=== PATIENT | female | born 1940 ===

== ENCOUNTER 2022-03-11 01:05 | Inpatient (IN) | payer MEDICARE, BC ==
[~2022-03-11] VITALS: Ht 175.3 cm; Wt 83.1 kg
[2022-03-11 03:11] LABS: Hematocrit 33.8 % (33.0-51.0); Hemoglobin 11.3 g/dL (11.5-16.0); Mean Corpuscular HGB 31.8 pg (26.0-34.0); Mean Corpuscular HGB Conc 33.4 g/dL (31.5-36.5); Mean Corpuscular Volume 95 fL (80-100); Mean Platelet Volume 10.3 fL (9.1-12.4); Platelet Count 124 K/mm3 (150-400); RDW Coefficient Variation 13.2 % (11.7-14.2); Red Blood Cell Count 3.55 M/mm3 (3.80-5.20); White Blood Cell Count 2.61 K/mm3 (4.00-11.30)
[2022-03-11 03:29] LABS: Albumin, Blood 2.3 g/dL (3.4-5.0); Albumin/Globulin Ratio 0.6 (0.8-1.8); Bilirubin, Total 1.7 mg/dL (0.1-1.0); Bun/Creatinine Ratio 15.4 (12.0-20.0); Calcium, Blood 8.6 mg/dL (8.5-10.1); Creatinine, Blood 1.82 mg/dL (0.40-1.00); Globulin, Blood 3.9 g/dL (2.2-4.0); Potassium, Blood 3.4 mmol/L (3.5-5.5); Total Protein, Blood 6.2 g/dL (6.4-8.2)
[2022-03-11] MEDS ORDERED: SYNTHROID50 MC1 PO (03:37)
[2022-03-11] MEDS ORDERED: OMEP20ER (03:38)
[2022-03-11] MEDS ORDERED: NOVOLOG FL100 UNIT/3 SC (03:38)
[2022-03-11] MEDS ORDERED: BASAGLAR K100 UNIT/8 (03:38)
[2022-03-11 03:40] LABS: BAND PERCENT MAN 19 % (0-8); BASOPHILS PERCENT MAN 0 % (0-2); EOSINOPHILS ABSOLUTE MAN 0.02 K/mm3 (0.00-0.68); EOSINOPHILS PERCENT MAN 1 % (0-6); LYMPHOCYTES ABSOLUTE MAN 0.36 K/mm3 (0.84-5.20); LYMPHOCYTES PERCENT MAN 14 % (21-46); METAMYELOCYTE ABSOLUTE MAN 0.02 K/mm3 (0.00-0.00); METAMYELOCYTE PERCENT MAN 1 % (0-0); MONOCYTES ABSOLUTE MAN 0.05 K/mm3 (0.16-1.47); MONOCYTES PERCENT MAN 2 % (4-13); MYELOCYTE ABSOLUTE MAN 0.07 K/mm3 (0.00-0.00); MYELOCYTE PERCENT MAN 3 % (0-0); NEUTROPHILS ABSOLUTE MAN 2.06 K/mm3 (1.96-9.15); SEG NEUTROPHILS PERCENT MAN 60 % (41-73); TOTAL CELLS COUNTED 100
[2022-03-11 05:11] LABS: Source, Urine Straight Cath
[2022-03-11 05:28] LABS: Appearance, Urine Hazy (Clear); Color, Urine Amber (P-Yellow)
[2022-03-11 05:39] LABS: Bacteria Few /hpf; Squamous Epithelial Cells Mod /hpf (Few)
[2022-03-11 05:41] LABS: Amorphous Mod (0-Heavy)
[2022-03-11 05:49] LABS: Influenza A, PCR NEGATIVE (NEGATIVE); Influenza B, PCR NEGATIVE (NEGATIVE); Resp Syncytial Virus, PCR NEGATIVE (NEGATIVE); SARS-Cov-2 (COVID-19) PCR, MMC NEGATIVE (NEGATIVE)
--- NOTE | 2022-03-11 11:15 | NUR ---
RECEIVED PT FROM ER [facility]IA [employer]. PT DROWSY, BUT AWAKENS TO VOICE AND IS ORIENTED X 4. PT DENIES PAIN, BUT REPORTS NAUSEA-MED WITH REGLAN-SEE EMAR. ECG SHOWS SR WITH RATE 90-110'S. AFEBRILE. MAP TRENDING >60-65 WITH LEVOPHED @ 8 MCG/MIN. NO EDEMA NOTED-DP/PT PULSES PALPABLE. LUNGS DIMIMISHED T/O. OCCASIONAL, NONPRODUCTIVE COUGH NOTED. SATS>90% ON 4 LITERS NASAL CANULA. PT DOES NOT WEAR O2 @ HOME NORMALLY, BUT SHE DOES WEAR CPAP AT NIGHT. PT TO BRING HER HOME CPAP TO HOSPITAL. PT NPO SHE IS EXTREMELY NAUSEAOUS. ABDOMEN IS NOT TENDER WITH PALPATION-BT'S ACTIVE X 4. SHEPPARD TO BSD WITH SMALL AMOUNT OF DARK, CLOUDY URINE. AN ADDITIONAL U/A WAS SENT IN THE ER ONCE SHEPPARD PLACED. SKIN IS PALE AND WARM. 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 LEFT GROIN WITH HX SKIN GRAFTING. 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 THE SKIN GRAFT CAME FROM THE RIGHT THIGH. NO SKIN BREAKDOWN NOTED. RIJ CENTRAL LINE DRESSING CHANGED.
[2022-03-11 11:36] LABS: Base Excess Venous -5.4 mmol/L; PCO2 Venous 40.8 mmHg (38-42); pH Blood Venous 7.31 (7.34-7.37)
--- NOTE | 2022-03-11 11:45 | NUR ---
MAP TRENDING LESS THAN 60-LEVOPHED TITRATED UP TO 10 MCG/MIN. LR @ 150 CC/HR INITIATED. VERONICA SING NOTIFIED OF NAUSEA AND HYPOTENSION. VERONICA IS AWARE THAT THE LEVOPHED DRIP IS AT 10 MCG/MIN. PT MADE NPO DUE TO NAUSEA. CBG AND INSULIN NOW EVERY 6 HOURS. ALSO, PT UNABLE TO SWALLOW KCL PO DUE TO NAUSEA-CHANGED TO IV-SEE EMAR.
[2022-03-11 12:00] LABS: Source, Urine Foley catheter
[2022-03-11 12:07] LABS: Appearance, Urine Clear (Clear); Blood, Urine 3+ (Neg); Color, Urine Amber (P-Yellow); Glucose Qualitative, Urine Neg (Neg); Ketones, Urine 1+ (Neg); Leukocyte Esterase, Urine 1+ (Neg); Nitrite, Urine Neg (Neg); Protein, Urine 2+ (Neg); Urobilinogen, Urine 3+ (Normal)
[2022-03-11 12:16] LABS: Bilirubin, Urine 2+ (Neg)
[2022-03-11 12:24] LABS: Bacteria Few /hpf; Renal Epithelial Few /hpf (0-Rare); Squamous Epithelial Cells Few /hpf (Few)
--- NOTE | 2022-03-11 16:00 | NUR ---
PT RESTING QUIETLY WHEN NOT DISTURBED. AWAKEN EASILY TO VOICE AND DENIES PAIN AND NAUSEA. MAP TRENDING >60-65 WITH LEVOPHED @ 10 MCG/MIN. ONLY 35 CC URINE OUTPUT-PT RECEIVED 3 LITERS IVF IN ER AND CURRENTLY, LR @ 150 CC/HR. DR. MYERS UPDATED TO CURRENT VS, PRESSOR REQUIREMENT, AND POOR URINE OUTPUT. LR 500 CC BOLUS INITIATED.
--- NOTE | 2022-03-11 17:45 | NUR ---
DR. MYERS MADE AWARE THAT PT HAS ONLY HAD 5 CC URINE OUTPUT WITH LR 500 CC BOLUS-LR INCREASED TO 200 CC/HR. NO ADDITIONAL ORDERS AT THIS TIME.
--- NOTE | 2022-03-11 21:00 | NUR ---
Assumed Care. AOx3, able to make needs known. Denies any pain or discomfort. LS clear, diminished in bases. on 4 L nc, Sats >90%. Moist non-productive cough occationally occurs. Denies congestion. Sinus on monitor with rate in adriana 90-100's. No chest pain to note. Mild trace edema to BLE. Pulses equal. Levo infusing at 10mcq. BP continues to be soft with MAP 60-65. IVF infusing 200cc hr. Informed Dr. strong in regards to low urine output of 45cc in the last few hours. Bladder scan was performed only 35cc. Order to continue fluids. denies any nausea. BT hypoactive. no skin breakdown noted. Call light in reach. Will continue to montior.
--- NOTE | 2022-03-11 21:52 | NUR ---
CALLED DR. ROMERO IN REGARDS TO LOW URINE OUTPUT OF 45 SINCE 1900. ORDER FOR BLADDER SCAN. IF THERE IS OBSTRUCTION THEN CONTINUE WITH IV FLUIDS HE SAID. BLADDER SCAN 35CC. WILL CONTINUE TO LEANDER.
[2022-03-12 03:40] LABS: BASOPHILS ABSOLUTE AUTO 0.09 K/mm3 (0.00-0.23); BASOPHILS PERCENT AUTO 0 % (0-2); Hemoglobin 11.6 g/dL (11.5-16.0); LYMPHOCYTES ABSOLUTE AUTO 0.95 K/mm3 (0.84-5.20); LYMPHOCYTES PERCENT AUTO 4 % (21-46); MONOCYTES ABSOLUTE AUTO 0.94 K/mm3 (0.16-1.47); MONOCYTES PERCENT AUTO 4 % (4-13); Mean Corpuscular HGB 31.5 pg (26.0-34.0); Mean Corpuscular HGB Conc 33.1 g/dL (31.5-36.5); Mean Corpuscular Volume 95 fL (80-100); Mean Platelet Volume 11.5 fL (9.1-12.4); Platelet Count 116 K/mm3 (150-400); RDW Standard Deviation 49.1 fL (35.1-46.3); Red Blood Cell Count 3.68 M/mm3 (3.80-5.20); White Blood Cell Count 26.25 K/mm3 (4.00-11.30)
[2022-03-12 03:42] LABS: EOSINOPHILS PERCENT AUTO 0 % (0-6); IMMATURE GRAN ABSOLUTE AUTO 0.85 K/mm3 (0.00-0.10); IMMATURE GRAN PERCENT AUTO 3 % (0-1); NEUTROPHILS ABSOLUTE AUTO 23.42 K/mm3 (1.96-9.15); NEUTROPHILS PERCENT AUTO 89 % (41-73)
[2022-03-12 04:00] LABS: Alanine Aminotransfer (ALT/SGP 56 U/L (12-78); Albumin, Blood 1.9 g/dL (3.4-5.0); Albumin/Globulin Ratio 0.5 (0.8-1.8); Alk Phos 144 U/L (50-136); Anion Gap 11 mmol/L (6-16); Aspartate Aminotrans (AST/SGOT 75 U/L (12-37); Bilirubin, Total 4.8 mg/dL (0.1-1.0); Blood Urea Nitrogen 41 mg/dL (8-24); Bun/Creatinine Ratio 12.7 (12.0-20.0); CO2, Blood 18 mmol/L (21-32); Calcium, Blood 7.7 mg/dL (8.5-10.1); Chloride, Blood 102 mmol/L (98-108); Creatinine, Blood 3.23 mg/dL (0.40-1.00); Globulin, Blood 4.1 g/dL (2.2-4.0); Glomerular Filtration Rate 14 (60-); Glucose, Blood 403 mg/dL (70-99); Magnesium, Blood 1.7 mg/dL (1.6-2.4); Sodium, Blood 131 mmol/L (136-145); Vancomycin, Random 25.8 ug/mL
[2022-03-12 04:22] LABS: Potassium, Blood 5.4 mmol/L (3.5-5.5)
--- NOTE | 2022-03-12 04:26 | NUR ---
Pt c/o increase in sob, nausea, and dry heves. She has become slightly confused and disoriented. Denies any pain or discomfort. States she can not sleep, orthopnea when laying down. Has to sit upright. Urine output so far this shift is 75cc only. LS crackles t/o, sats 94% when sitting upright decreases when she lays down. Called Dr. Martinez and informed of situation. Orders received to stop fluids, give lasix and phenergan for nausea. Blood sugar 330. will medicate per orders.
--- NOTE | 2022-03-12 06:11 | NUR ---
Shift Summary: Pt able to answer orientation questions appropriatly but has had periods of confusion and disorientation. Easily re-oriented. Has not slept. Increased in dyspnea with new development of crackles t/o, orthopena and inability to lay slightly down. Wore CPAP only for a few hours c/o tightness and uncomfort. Refused to wear it again tonight. Cough moist, non-productive. Sats have remained >90%. HR sinus 90-100's. BP soft, Levo titrated t/o night to maintain MAP 60-65, currently at 10mcq/hr. Mild edema to BLE. Hypoactive BT with nausea and dry heves. Has been given reglan, zofran and new order for phenergan 12.5mg. Dr. Petit and Dr. Martinez were notified t/o the night of changes. Urine output this shift was 125cc, dark neeta. Lasix 40mg was given, no changes. BUN increased to 41, Creatine now at 3.23, and GFR decreased to 14. Other abnormal labs include WBC 26.25, NA 131. Dr. Martinez informed. IVF stopped per orders. Lantus 15 units ordered, still waiting to get from pharmacy. Call light in reach. Will report to dayswvft.
--- NOTE | 2022-03-12 07:30 | NUR ---
PT HAS HAD CHANGE IN MENTATION OVER NIGHT. SHE IS AWAKE, BUT CONFUSED AND DISORIENTED. SHE IS ABLE TO FOLLOW COMMANDS. PT AFEBRILE, ECG SHOWS SR WITH RATE 90'S. 1ST DEGREE AV BLOCK. MAP TRENDING >65 WITH LEVOPHED @ 8 MCG/MIN. DP/PT PULSES PALPABLE. 1+ GENERALIZED EDEMA. LUNGS WITH CRACKLES T/O. SATS>90% ON 4 LITERS NASAL CANULA. RR 28-32. PT IS ORTHOPNEIC AND WOB INCREASED SIGNIFICANTLY OVER NIGHT. PT HAS CONTINUOUS NAUSEA AND DRY HEAVING DESPITE BEING MEDICATED WITH ANTI-EMETICS PRN. NPO PT IS AT HIGH RISK FOR ASPIRATION. SHEPPARD WITH SCANT AMOUNT OF DARK, CLOUDY, YELLOW URINE OUTPUT-DESPITE LASIX 40 MG IVP GIVEN ON NOC SHIFT. BUN 4, CREAT. 3.23-DR. PACE UPDATED TO CURRENT VS AND STATUS-ORDERS TO BE PLACE FOR INTESIVIST AND NEPHRO CONSULT.
--- NOTE | 2022-03-12 09:00 | NUR ---
PT MOANING AND CRYING OUT. WHEN ASKED WHY, PT STATES "I AM JUST SO WEAK! I CAN'T MOVE MY LEGS." PT REMAINS CONFUSED AND AGITATED. RENAL ULTRASOUND HAS BEEN COMPLETED. BOTH AND DR. FLANAGAN MADE AWARE OF CONSULT AND GIVEN BRIEF UPDATE BY ANANTH STARK RN.
--- NOTE | 2022-03-12 11:01 | NUR ---
PT REPORTS 7/10 BILATERAL THIGH AND GROIN PAIN. MED WITH FENTANYL 25 MCG IVP X 1-SEE EMAR. MAP TRENDING < 60-TITRATED LEVOPHED TO 12 MCG/MIN. PT STILL HAS DRY HEAVES AND REPORTS NAUSEA-MED WITH ZOFRAN 4 MG IVP X 1. BICARB DRIP INITIATED @ 100 CC/HR PER DR. ENG ORDERS.URINE NA+ AND CREATININE SENT. FIO2 TITRATED UP TO 10 LITERS TO KEEP SATS>90%. MONITORING END TIDAL CO2.
--- NOTE | 2022-03-12 11:15 | NUR ---
DR. FLANAGAN GIVEN UPDATE. MD TO SEE PT.
--- NOTE | 2022-03-12 11:20 | NUR ---
Pt. is in bed and displays evidence of somnolence. Family members are present and welcome my visit. Spouse is very unsettled about the sudden decline in the pts. condition since the wekend. Listen theraputically with a calming presence. Spouse displays evidence of being comforted. Establish rapport with both Spouse and Pts. sister. Pt. displays evidence of being aware that there are people present in her room, and verbally acknowledges this landscape account manager's presence. Prayed for Pt. and family. Pts. sister and spouse verbalize gratitude for the spiritual care visit.
--- NOTE | 2022-03-12 11:30 | NUR ---
DR. FLANAGAN IN TO SEE PT. FIO2 DECREASED TO 7 LITERS-SATS 96%.
--- NOTE | 2022-03-12 11:30 | NUR ---
FIOW TITRATED DOWN TO 5 LITERS AND SATS STILL >90%.
--- NOTE | 2022-03-12 12:15 | NUR ---
LEVOPHED CONTINUES @ 12 MCG/MIN TO KEEP MAP >65-VASOPRESSIN DRIP INITIATED PER DR. FLANAGAN VERBAL ORDER.
--- NOTE | 2022-03-12 13:30 | NUR ---
MAP TRENDING 80'S-LEVOPHED TITRATED DOWN TO 8 MCG/MIN. PT APPEARS LESS CONFUSED. LUNGS STILL WITH CRACKLES T/O. SATS>90% ON 5 LITERS NASAL CANULA. FREQUENT ORAL CARE DONE PT BEGGING FOR WATER-DESPITE N/V AND DRY HEAVING. SHEPPARD OUTPUT STILL POOR. PT HAD SMALL, MUCOID, BLOOD TINGED BM. POSITIONED TO COMFORT ON LEFT SIDE BY NICK CURRAN.
--- NOTE | 2022-03-12 15:45 | NUR ---
PT MOANING AND CRYING OUT. STATES "I CAN'T DO THIS ANYMORE!" PT HAS HER LEGS THROWN OVER THE EDGE OF THE BED AND GRABBING THE IV PUMP AND TUBING. PT STATES "I CAN'T GO ON UNLESS YOU GIVE ME WATER! I JUST CAN'T GET COMFORTABLE!" PT MED WITH FENTANYL 50 MCG IVP X 1 FOR GENERALIZED PAIN. PT GIVEN A FEW ICE CHIPS ONE AT A TIME AND HAS TOLERATED THEM WELL. SHE DENIES NAUSEA AT THIS TIME.
[2022-03-12 16:29] LABS: Hematocrit 32.9 % (33.0-51.0); Hemoglobin 11.1 g/dL (11.5-16.0); Mean Corpuscular HGB 31.5 pg (26.0-34.0); Mean Corpuscular HGB Conc 33.7 g/dL (31.5-36.5); Mean Corpuscular Volume 94 fL (80-100); Mean Platelet Volume 11.3 fL (9.1-12.4); Platelet Count 81 K/mm3 (150-400); RDW Coefficient Variation 14.3 % (11.7-14.2); Red Blood Cell Count 3.52 M/mm3 (3.80-5.20); White Blood Cell Count 22.57 K/mm3 (4.00-11.30)
--- NOTE | 2022-03-12 16:30 | NUR ---
PT REMAINS INTERMITTENTLY CONFUSED AND AGITATED. PT ASKS "WHAT HAPPENED? HOW DID I GET HERE?" RN ABLE TO RE-ORIENT PT WITH VERBAL CUES. PT DOES NOT REMEMBER BEING IN ICU OVERNIGHT. PT BATHED, LINEN CHANGE COMPLETED, AND ORAL CARE DONE-TOLERATED WELL. PT STATES THAT SHE IS "SO WEAK!" ECG SHOWS SR WITH RATE 90'S. MAP TRENDING >65 WITH LEVOPHED @ 8 MCG/MIN AND VASOPRESSIN @ 0.04 UNITS/MIN. PT GIVEN ICE CHIPS TO MELT ON HER TONGUE SHE HAS BEEN BEGGING FOR WATER. TOLERATED WELL. PT STATES THAT SHE IS NOT NAUSEATED AND AGREES TO NOTIFY RN IF SHE STARTS TO FEEL "SICK TO MY STOMACH." URINE OUTPUT REMAINS POOR. RP, CBC, AND MG+ DRAWN AND SENT TO LAB PER DR. PACE ORDERS.
[2022-03-12 16:43] LABS: Albumin, Blood 1.9 g/dL (3.4-5.0); Anion Gap 11 mmol/L (6-16); Blood Urea Nitrogen 47 mg/dL (8-24); Bun/Creatinine Ratio 12.6 (12.0-20.0); CO2, Blood 18 mmol/L (21-32); Calcium, Blood 7.5 mg/dL (8.5-10.1); Chloride, Blood 102 mmol/L (98-108); Creatinine, Blood 3.72 mg/dL (0.40-1.00); Glomerular Filtration Rate 12 (60-); Glucose, Blood 358 mg/dL (70-99); Magnesium, Blood 1.9 mg/dL (1.6-2.4); Phosphorus, Blood 4.3 mg/dL (2.5-4.9); Potassium, Blood 5.3 mmol/L (3.5-5.5); Sodium, Blood 131 mmol/L (136-145)
[2022-03-12 17:05] LABS: BAND PERCENT MAN 17 % (0-8); BASOPHILS PERCENT MAN 0 % (0-2); EOSINOPHILS PERCENT MAN 0 % (0-6); LYMPHOCYTES ABSOLUTE MAN 0.67 K/mm3 (0.84-5.20); LYMPHOCYTES PERCENT MAN 3 % (21-46); METAMYELOCYTE ABSOLUTE MAN 0.22 K/mm3 (0.00-0.00); METAMYELOCYTE PERCENT MAN 1 % (0-0); MONOCYTES ABSOLUTE MAN 0.45 K/mm3 (0.16-1.47); MONOCYTES PERCENT MAN 2 % (4-13); NEUTROPHILS ABSOLUTE MAN 21.21 K/mm3 (1.96-9.15); SEG NEUTROPHILS PERCENT MAN 77 % (41-73); TOTAL CELLS COUNTED 100
--- NOTE | 2022-03-12 17:15 | NUR ---
DR. PACE CONTACTED WITH UPDATED LABS, VS, INTAKE 1361 VS 40 OUTPUT. NO NEW ORDERS. REQUESTS THAT DR. ENG BE UPDATED WELL. ATTEMPTED TO CONTACT DR. ENG-VOICEMAIL LEFT.
--- NOTE | 2022-03-12 17:59 | NUR ---
PT CRYING AND MOANING. PT APPEARS LUCID AND ORIENTED AT THIS TIME. PT STATES "I JUST WANT TO GO MEET THE LORD!" PT STATES "I JUST WANT TO GO COMFORTABLY." RR 30'S PT DYSPNEIC AND WOB INCREASED. PT DAUGHTER LORENA AND SISTER FLASH HAVE BEEN UPDATED.
--- NOTE | 2022-03-12 18:45 | NUR ---
PT SPOUSE AND SISTER AT BEDSIDE. PT ABLE TO VERBALIZE TO BOTH OF THEM THAT SHE WISHE TO "GO MEET THE LORD." MARIOINJECTION MOLD TOOLING TECHNICIAN AT BEDSIDE TO WITNESS PT SAYING REPEATEDLY THAT SHE JUST WANTS TO BE MADE COMFORTABLE. MARIO UPDATED DR. PACE AND PT WAS MADE COMFORT CARE. PT CONTINUES TO REPORT DYSNPNEA AND AIR HUNGER-ALSO, PT REPORTS GENERALIZED PAIN-MED WITH FENTANYL 50 MCG IVP X 1. IVF AND PRESSORS DISCONTINUED.
--- NOTE | 2022-03-12 18:53 | NUR ---
Received a call from bedside RN; pt stating she can't continue this way. Met with pt and confirmed she is of sound mind, and has decided no more treatment. She has ESRD and doesn't wish to begin dialysis. Her Imtiaz and friend arrived, both tearful but both now accepting pt's choice. Imtiaz did ask pt to continue, not give up, but ultimately he decided to accept her decision. He is holding her hand at the bedside. Bedside RN is medicating pt for comfort, as ordered by Dr. De La Torre and code status changed to DNR.
--- NOTE | 2022-03-12 19:00 | NUR ---
AIR HUNGER CONTINUES. MED WITH MORPHINE 4 MG IVP X 1. PT FAMILY REMAINS AT BEDSIDE. ELI PRUETT TO ASSUME PT CARE. REPORT GIVEN.
--- NOTE | 2022-03-12 19:58 | NUR ---
PATIENT IS ALERT BUT CONFUSED, NONSENSICLE RAMBLING. PATIENT DENIES ANY PAIN, OFFERED REPOSITIONING AND SHE STATES SHE IS COMFORTABLE. WILL MEDICATE PER EMAR FOR DISOMFORT/AIR HUNGER PRN. CALL LIGHT IN REACH. AT BEDSIDE, STATES PATIENT LOOKS COMFORTABLE.
--- NOTE | 2022-03-12 23:03 | NUR ---
PATIENT REPOSITIONED. DENIES PAIN/DISCOMFORT. REMAINS AT BEDSIDE.
--- NOTE | 2022-03-13 04:06 | NUR ---
PATIENT REMIANS CONFUSED BUT STATES SHE IS COMFORTABLE. BOOSTED IN BED AND REPOSITIONED. DENIES PAIN. AT BEDSIDE, ASKED FOR AN EXPLANATION ABOUT WHAT COMFORT CARE IS, EXPLAINED IT TO HIM AND HE SEEMS TO UNDESTAND.
--- NOTE | 2022-03-13 04:08 | NUR ---
PATIENT BECAME ANXIOUS/AGITATED AND IS CONFUSED, MEDICATED PER EMAR. REPOSITIONED AND MADE COMFORTABLE. REMAINS AT BEDSIDE.
--- NOTE | 2022-03-13 05:12 | NUR ---
MEDICATED FOR DISOMFORT, PATIENT APPEAR TO BE RESTING COMFORTABLY. REMAINS AT BEDSIDE.
--- NOTE | 2022-03-13 10:37 | NUR ---
Spiritual Care Visit. Pt. has been put on Comfort care. Pt. is resting, Pts. sister is present. Facilitated a family life review and re-established rapport. Sister displayed evidence of being a primary support and resource for the Pt. and spouse. Sister had questions about how hospice decisions were made. Listened theraputically. Pts. sister verbalized that her home would likely be the location if home hospice was decided. With permission, relayed this information to case management.
--- NOTE | 2022-03-13 10:44 | NUR ---
SISTER FLASH AT BEDSIDE, PATIENT HAS NO DISTRESS OR STARTLE RESPONSE, SATS 87% ON RA, HEART RATE 87, RESPIRATIONS 22, REPOSITIONED, WCTM
--- NOTE | 2022-03-13 14:39 | NUR ---
jacques 82%, heart rate 98, resp 33
--- NOTE | 2022-03-13 14:40 | NUR ---
medicated for grimaced forehead and flailing arms
--- NOTE | 2022-03-13 16:13 | NUR ---
Spiritual Care Visit. Pt. is on Comfort care and is mostly unresponsive. Spouse is present and welcomes my visit. Spouse was not present for my earlier visit. Establish rapport and give pastoral care with a calming presence. Spouse shares the story of his shweta. Listen theraputicaly and address issues of grief and support. Spouse displays evidence appropriate grief. Spouse verbalized that [facility] after the Pt. passes. Prayed with Spouse. Spouse verbalized gratitude for the Spiritual care visit.
--- NOTE | 2022-03-13 16:33 | NUR ---
VISITED, WEATHER OBSERVER SPOKE WITH
--- NOTE | 2022-03-13 17:59 | NUR ---
PATIENT OPEN EYES TO VOICE AND TOUCH, DOES NOT TRACK STAFF IN ROOM, DOES NOT FOLLOW DIRECTIONS, MOANS, GRIMACES, AND FLAILS ARMS. SATS 80-88% ON RA, RESP 16-25, COMFORT CARE, PATIENT MOANS WHEN BP TAKEN, REFSUED ORAL CARE BY SHAKING AND WITHDRAWING HEAD. NPO, NO SIGNS OR SYMPTOMS OF N/V, REPOSITIONED EVERY 2 HOURS, PATIENT GRIMACES WITH MOVEMENT, MEDICATED WITH MORPHINE X2, SHEPPARD TO GRAVITY, NO OUTPUT, VISTIED, [facility] CHOSE FOR CREMATION, WAITING FOR SISTER FLASH TO DECIDE ON WHICH HOSPICE THEY WANT TO GO THROUGH IF PATIENT NEEDS TO GO HOME ON HOSPICE CARE, WILL RELAY TO PM ELI
--- NOTE | 2022-03-13 20:42 | NUR ---
Assumed Care. Comfort measures in place. Opens eyes slightly when repositioned. Falls right back to sleep. LS clear, resp even and unlabored. Sats 86% on RA. HR 93 sinus. Scant amount of urine in the cath. Skin Pale, cool, edema to ble. No signs of discomfort. Will continue to montior.
--- NOTE | 2022-03-14 02:10 | NUR ---
PT RESTING IN COMFORTABLY, JUST REPOSITIONED HER IN BED, VERY LITTLE RESPONSE NOTED. AROUND 0130 SHE DID HAVE A PAUSE IN HER RHYTHM. AFTER REPOSITIONING SHE WENT INTO VENT. RHYTHM. SHE WILL OPEN HER EYES OCCATIONALLY ONLY. WILL CONTINUE TO MONTIOR.
--- NOTE | 2022-03-14 03:20 | NUR ---
PT'S CLENCHING FIST, EYES OPEN AND GRIMACING. 2MG OF MORPHINE GIVEN. NOTED IMMEDIATE RELAXATION. NOT TO LONG AFTER SHE STARTED TO RYANN DOWN, THEN WENT ASYSTOLE. WENT TO ROOM, SHE WAS POSTURING AND GASPING FOR AIR. SHE PASSED AT 0310. CHARGE NURSE ASHOK IN ROOM TO VERIFY. DR. MAGAÑA CALLED AND NOTIFIED. CALLED AND NOTIFIED, STATES HE WILL BE RIGHT IN. SHEPPARD AND CENTRAL LINE REMOVED. ALL LINES REMOVED AND PATIENT CLEANED UP.
--- NOTE | 2022-03-14 05:57 | NUR ---
Call placed to , states he had to wait till daylight as he can not drive at night. He is currently on his way in. Pt belongings are bagged and ready for him to tAke home including 1 ring.
--- NOTE | 2022-03-14 06:30 | NUR ---
came in but was unable to see his in the passing state. Very upset and tearful. He did not want her belongings not even the CPAP. He did take her ring home with him. He confirmed [place] for [facility] and that no other family will in to see her. Offered pastoral care, he said he will be going to friends house this am. Belongings were thrown away per husbands request, and again ring was sent home with him. Informed charge nurse.
== END 2022-03-14 03:10 | DRG 871 ==
LOC: ER 01:05 → ICUW 10:19
PROVIDERS: Emergency Medicine; Internal Medicine; Nurse Practitioner Acute Care; ADMIT Hospitalist
PROC: 3E03329 Introduction of Other Anti-infective into Peripheral Vein, Percutaneous Approach (ICD-10-PCS; principal; 2022-03-11)
PROC: 3E033XZ Introduction of Vasopressor into Peripheral Vein, Percutaneous Approach (ICD-10-PCS; 2022-03-11)
DX: A41.9 Sepsis, unspecified organism (principal); I21.A1 Myocardial infarction type 2; R65.21 Severe sepsis with septic shock; N17.0 Acute kidney failure with tubular necrosis; J18.9 Pneumonia, unspecified organism; J96.01 Acute respiratory failure with hypoxia; E87.2 Acidosis; Z51.5 Encounter for palliative care; E66.01 Morbid (severe) obesity due to excess calories; E03.9 Hypothyroidism, unspecified; G47.33 Obstructive sleep apnea (adult) (pediatric); Z79.4 Long term (current) use of insulin; Z88.0 Allergy status to penicillin; Z88.8 Allergy status to other drugs, medicaments and biological substances
CPT/HCPCS: 0241U; 36415; 36556; 51702; 71045; 74177; 76705; 76770; 80053; 80069; 80202; 81001; 82550; 82570; 82803; 82947; 83605; 83735; 83880; 84145; 84300; 84484; 85025; 87040; 87086; 93005; 93010; 93306; 94660; 96361-59; 96365-59; 96367-59; 96375-59; 99285-25; A9270; C1751; C9113; J0456; J0692; J0696; J1644; J1815; J1940; J2060; J2270; J2405; J2550; J2765; J3010; J3370; J3480; J7030; J7040; J7050; J7060; J7070; J7120; Q9967